=== PATIENT | female | born 2000 | race Caucasian/White ===

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

== ENCOUNTER → 2022-04-18 | Outpatient (CLI) | payer OTHER, MEDICAID, SELFPAY ==
--- NOTE | 2022-04-18 12:41 | US_ITS ---
STUDY: RENAL ULTRASOUND - COMPLETE REASON FOR EXAM: Female, 21 years old. UTI . Prior reflux implant. . TECHNIQUE: Ultrasound evaluation of the kidneys was performed with real-time and static viera-scale imaging. COMPARISON: None. FINDINGS: RIGHT KIDNEY: Normal location of the right kidney, which is normal in size. The right kidney measures 10.5 cm x 4.6 cm x 3.7 cm. There is a normal cortex of the right kidney. The renal cortex measures 1.1 cm. There is no right renal mass or cyst. There are no right renal calculi. There is no right hydronephrosis. DISTAL RIGHT URETER: There is non-visualization of the distal right ureter. There is no demonstrated right ureterovesical junction calculus. There is a visualized right ureteral jet. LEFT KIDNEY: Normal location of the left kidney, which is normal in size. The left kidney measures 10 cm x 4.7 cm x 4.5 cm. There is a normal cortex of the left kidney. The renal cortex measures 1.6 cm. There is no left renal mass or cyst. There are no left renal calculi. There is no left hydronephrosis. DISTAL LEFT URETER: There is non-visualization of the distal left ureter. There is no demonstrated left ureterovesical junction calculus. There is a visualized left ureteral jet. Echogenic structure is seen adjacent to the left ureterovesical junction most likely representing the implant. BLADDER: The distended urinary bladder has a volume of 252 ml. There is a normal wall thickness of the distended urinary bladder. There is no demonstrated mass within the urinary bladder. There are no demonstrated bladder calculi. US/Kidney and Bladder IMPRESSION: Normal ultrasound of the kidneys and urinary bladder. Electronically Signed: Narinder Li MD at 10:03 EDT ,
== END | disposition home or self-care (01) ==
LOC: US 12:40
PROVIDERS: PCP Pediatrics; Referring Provider Urology; Visit Provider Urology
DX: N39.0 Urinary tract infection, site not specified (principal); N13.70 Vesicoureteral-reflux, unspecified
CPT/HCPCS: 76770

== ENCOUNTER → 2022-09-01 | Outpatient (CLI) | payer OTHER, MEDICAID, SELFPAY ==
[2022-09-01 12:14] LABS: Absolute Neutrophil Count 2.8 X10^3/uL (2.0-7.7); Basophil# 0.02 X10^3/uL; Basophil% 0.4 % (0-1); Eosinophil# 0.07 X10^3/uL; Eosinophils% 1.5 % (0-5); Hematocrit 39.1 % (37-47); Hemoglobin 12.9 g/dL (12.0-15.0); Lymphocyte % 31.9 % (19-41); Mean Corpuscular Hgb 29.3 pg (27.0-32.0); Mean Corpuscular Volume 88.9 fL (81-99); Mean Platelet Vol. 10.2 fl (6.2-12.0); Monocyte# 0.32 X10^3/uL; Monocyte% 6.8 % (0-10); NRBC Flagged by Analyzer 0 % (0-5); Neutrophil # 2.78 X10^3/uL (2.7-7.7); Neutrophil % 59.2 % (47-70); Platelet Count 245 K/mm3 (150-450); RBC Distribution Width CV 11.8 % (11.6-14.6); White Blood Count 4.7 K/mm3 (4.4-11.0)
[2022-09-01 13:00] LABS: ALB/GLOB Ratio 1.3 RATIO (0.9-2.4); AST(SGOT) 22 U/L (15-37); Alanine Aminotransfer ALT/SGPT 24 U/L (13-56); Albumin, Serum 4.1 g/dL (3.2-5.0); Alkaline Phosphatase 98 U/L (45-117); Anion Gap 7 (5-15); BUN 9 mg/dL (7-18); BUN/Creat Ratio 14.5 RATIO (10-20); Chloride 109 mmol/L (98-107); Creatinine, Serum 0.62 mg/dL (0.55-1.02); EST Glomerular Filtration Rate 129 mL/min (>60); Est Glom Filt Rate - Afr Amer 156 mL/min (>60); Globulin 3.2 g/dL (2.2-4.2); Glucose 94 mg/dL (74-106); Protein, Total 7.3 g/dL (6.4-8.2); Sodium Level 141 mmol/L (136-145)
== END | disposition home or self-care (01) ==
LOC: BIMLAB 11:13
PROVIDERS: PCP Pediatrics; Visit Provider Internal Medicine
DX: F32.A Depression, unspecified (principal); F41.9 Anxiety disorder, unspecified; Z11.3 Encounter for screening for infections with a predominantly sexual mode of transmission
CPT/HCPCS: 36415; 80053; 85025

== ENCOUNTER → 2022-09-05 | Outpatient (CLI) | payer OTHER, MEDICAID, SELFPAY ==
[2022-09-05 15:45] LABS: Chlamydia Trachomatis by PCR Negative (Negative); Neisserai gonorrhoeae by PCR Negative (Negative)
[2022-09-05 15:46] LABS: Probe Check PASS; Sample Adequacy Control PASS; Specimen Processing Control PASS
== END | disposition home or self-care (01) ==
LOC: LABSPEC 10:22
PROVIDERS: PCP Internal Medicine; Referring Provider Internal Medicine; Visit Provider Internal Medicine
DX: Z11.3 Encounter for screening for infections with a predominantly sexual mode of transmission (principal)
CPT/HCPCS: 87491; 87591

== ENCOUNTER → 2022-10-13 | Outpatient (CLI) | payer OTHER, MEDICAID, SELFPAY ==
[2022-10-13 18:17] LABS: Amphetamine Urine VISTA NEGATIVE (<1000 ng/mL); Barbiturate Urine VISTA NEGATIVE (< 200 ng/mL); Benzodiazepine Urine VISTA NEGATIVE (< 200 ng/mL); Cocaine Urine VISTA NEGATIVE (< 300 ng/mL); Ecstacy Urine VISTA NEGATIVE (< 500 ng/mL); Methadone Urine VISTA NEGATIVE (< 300 ng/mL); PCP Urine VISTA NEGATIVE (< 25 ng/mL); THC Urine VISTA NEGATIVE (< 50 ng/mL); Vista UDS pH Range 5
== END | disposition home or self-care (01) ==
PROVIDERS: PCP Internal Medicine; Visit Provider Obstetrics & Gynecology
DX: Z11.3 Encounter for screening for infections with a predominantly sexual mode of transmission (principal)
CPT/HCPCS: 80307

== ENCOUNTER → 2023-02-02 | Outpatient (CLI) | payer OTHER, MEDICAID, SELFPAY ==
[2023-02-02 10:29] LABS: NATERA MAILED SPECIMEN
[2023-02-08 19:42] LABS: HPV Reflexed? NOT INDICATED
== END | disposition home or self-care (01) ==
PROVIDERS: PCP Family Medicine; Referring Provider Obstetrics & Gynecology; Visit Provider Obstetrics & Gynecology
DX: Z12.4 Encounter for screening for malignant neoplasm of cervix (principal)
CPT/HCPCS: 36415; 88175; G0145

== ENCOUNTER → 2023-06-15 | Outpatient (CLI) | payer OTHER, SELFPAY ==
--- NOTE | 2023-06-16 09:14 | PFT ---
INTRODUCTION: The patient is a 22-year-old female who presents for pulmonary function studies secondary to a diagnosis of asthma. Respiratory therapy reported good patient effort. Bronchodilators were used during testing. INTERPRETATION: Forced expiration spirometry demonstrates no evidence of a large airways obstructive ventilatory defect. There was no significant response to aerosolized bronchodilators. Body plethysmography was performed and revealed lung volumes to be within normal limits. Diffusing capacity by single breath CO was also within normal limits. IMPRESSION: Grossly normal pulmonary function studies.
== END | disposition home or self-care (01) ==
LOC: PSN 09:53
PROVIDERS: PCP Family Medicine; Referring Provider Internal Medicine Critical Care Medicine; Visit Provider Internal Medicine
DX: J45.909 Unspecified asthma, uncomplicated (principal)
CPT/HCPCS: 94060; 94726; 94729

== ENCOUNTER 2023-06-27 06:58 | Outpatient (RCR) | payer OTHER, SELFPAY ==
--- NOTE | 2023-06-27 10:50 | HP.PTEVAL_ITS ---
Patient's Visit Information Visit Information Visit Information: ANA TERAN is a 22 year old F referred to Physical Therapy by Dr. Julio Cesar Nolen DO with a diagnosis of LOW BACK PAIN. Date of Evaluation: 06/27/23 Physical Therapist: Mikael Latham PT, Cert MDT, OCS Visit Plan Frequency: 2x /Week Duration: 4 Weeks Plan: PT INTERVETIONS DLS ,POSTURAL EX'S ,STRENGTHENING AND MODALTIES Subjective Subjective: This 22 y/o female presents physical therapy with low back pain. Patient has back pain many years worse about~ 2 years. Patient contributing factors [employer] working [address] lugo PT and may need MRI. Location pain lumbar region. Described pain as shooting. Aggravating bending ,lifting ,sitting ,in the morning, walking and standing. Alleviating factors rest. Patient had no recent x-rays ,but had x-rays last year which was negative. Coughing/sneezing + . C/O paresthesia/tingling -. Pain causes pain. Patient has trauma. Patient pain causes deficits impairs function. Patient goals to decrease pain. 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[employer] ,delivery presription Pain Bilateral Back: Pain Intensity (Out of 10): 5 Objective Objective: POSTURE: decrease lordosis GAIT: reciprocal pattern NEURO: denies paresthesia/tingling ,reflexes L3-4,L4-5,L5-S1 2/3 SYMTTRIES: align PALAPTION: unremarkable MMT: quads/hams 4/5, 4/5 hip ,ankle 4/5 LUMBAR ROM: flexion mod loss ,extension mod loss ,min side glides ( although SUPINE flexion/REIL WNL) HIP ROM: excessive ROM ABDNOMINAL ENDURANCE: unable Special Tests L/S Slump test left side: Negative L/S Slump test right side: Negative L/S Left Straight Leg Raise: Negative L/S Right Straight Leg Raise: Negative Lumbar Standing: Flexion - Mechanical Response: No effect Lumbar Standing: Flexion - Symptoms During Testing: Increases Lumbar Standing: Flexion - Symptoms After Testing: No worse Lumbar Standing: Extension - Mechanical Response: No effect Lumbar Standing: Extension - Symptoms During Testing: Increases Lumbar Standing: Extension - Symptoms After Testing: No effect Lumbar Standing: Right Side Glides - Mechanical Response: No effect Lumbar Standing: Right Side [facility] - Symptoms During Testing: No effect Lumbar Standing: Right Side [facility] - Symptoms After Testing: No effect Lumbar Standing: Left Side [facility] - Mechanical Response: No effect Lumbar Standing: Left Side [facility] - Symptoms During Testing: No effect Lumbar Standing: Left Side [facility] - Symptoms After Testing: No effect Lumbar Lying: Flexion - Mechanical Response: No effect Lumbar Lying: Flexion - Symptoms During Testing: No effect Lumbar Lying: Flexion - Symptoms After Testing: No effect Lumbar Lying: Extension - Mechanical Response: No effect Lumbar Lying: Extension - Symptoms During Testing: Increases Lumbar Lying: Extension - Symptoms After Testing: No effect Balance/Special Test Scores Oswestry Low Back Score: 26 Goals Goal 1:: Patient to be I with HEP Goal Time Frame: 4-6 Weeks Goal 2:: Patient to improve posture/body mechanics for ADLS and job demands. Goal Time Frame: 4-6 Weeks Goal 3:: Patient to improve lumbar ROM for function of recovery for job demands with lifting Goal Time Frame: 4-6 Weeks Goal 4:: Patient to demonstrate 50% improvement with function and less pain Goal Time Frame: 4-6 Weeks Goal 5:: Patient to improve back oswestry score by 5 points to improve function Goal Time Frame: 4-6 Weeks Rehabilitation Potential Physical Therapy Diagnosis: This patient has lumbar pain with poor abd endurance testing due to pain and position and motion testing increase pain along with comorbities with hypermobile joints thus bene fit from skilled PT Rehabilitation Potential: Good Anticipated Interventions Patient/Client Instruction: Educate patient on: Condition and Plan of Care For the Purpose of:: To decrease pain, To improve muscle performance and motor function, To increase tolerance to activity/condition/position, To improve performance and independence with ADL's, To improve ability of physical actions for home/community/work/leisure, To improve health of tissue, To increase flexibility/ROM and To improve endurance Therapeutic Exercise to Include: Strength training, Endurance training, Balance training, Postural training, Flexibilty training, Active ROM and Dynamic Lumbar Stabilization For the Purpose of:: To increase ROM, To increase oxygenation perfusion, To improve ability to perform ADL's, To increase tolerance to activity/condition/position, To improve ability of physical actions for home/community/work/leisure, To improve gait and locomotor functions, To improve health of tissue, To decrease soft tissue restriction, To increase flexibility/ROM and To improve tolerance to ADL's TENS: Yes IF ES: Yes Cryotherapy (ice pack, ice massage): Yes Thermo therapy (hot pack): Yes Ultrasound (thermal/non thermal): Yes For the Purpose of:: To decrease pain, To improve nutrient delivery to tissue, To increase oxygenation perfusion, To improve health of tissue, To decrease soft tissue restriction and To increase flexibility/ROM Text: Thank you for the opportunity to evaluate your patient. For Medicare and Medicare HMO plans, please review the plan of care and approve it. It will need to be FAXED BACK to us at [phone] for Medicare purposes. For Medicare only, by signing this I certify the plan of care. Please let me know if there are questions or concerns regarding this plan of care. Physician Signature: Date:
--- NOTE | 2023-10-02 11:25 | HP.PT.NRP ---
Patient Information Patient Information: ANA TERAN was seen in my office for initial evaluation on 06/27/23. The following Plan of Care was established for this patient: POC Established Initial Frequency: 2x /Week Initial Duration: 4 Weeks Anticipated Interventions Patient/Client Instruction: Educate patient on: Condition and Plan of Care For the Purpose of:: To decrease pain, To improve muscle performance and motor function, To increase tolerance to activity/condition/position, To improve performance and independence with ADL's, To improve ability of physical actions for home/community/work/leisure, To improve health of tissue, To increase flexibility/ROM and To improve endurance Therapeutic Exercise to Include: Strength training, Endurance training, Balance training, Postural training, Flexibilty training, Active ROM and Dynamic Lumbar Stabilization For the Purpose of:: To increase ROM, To increase oxygenation perfusion, To improve ability to perform ADL's, To increase tolerance to activity/condition/position, To improve ability of physical actions for home/community/work/leisure, To improve gait and locomotor functions, To improve health of tissue, To decrease soft tissue restriction, To increase flexibility/ROM and To improve tolerance to ADL's TENS: Yes IF ES: Yes Cryotherapy (ice pack, ice massage): Yes Thermo therapy (hot pack): Yes Ultrasound (thermal/non thermal): Yes For the Purpose of:: To decrease pain, To improve nutrient delivery to tissue, To increase oxygenation perfusion, To improve health of tissue, To decrease soft tissue restriction and To increase flexibility/ROM Last Seen Last Seen: This patient was last seen in our office . Pertinent comments regarding their Physical therapy will appear below: Patient seen for PT for lumbar pain for PT evaluation and HEP At this point I will be discontinuing this patient from physical therapy. I would be happy to see this patient again in the future if found appropriate by the physician. Thank you! Mikael Latham, PT, Cert MDT, OCS Balance/Gait/Functional tests Balance/Special Test Scores Oswestry Low Back Score: 26
== END 2023-06-27 19:00 | disposition home or self-care (01) ==
LOC: PT 06:58
PROVIDERS: PCP Family Medicine; Referring Provider Orthopaedic Surgery; Visit Provider Orthopaedic Surgery
DX: M54.59 Other low back pain (principal)
CPT/HCPCS: 97110; 97161

== ENCOUNTER → 2023-10-16 | Outpatient (CLI) | payer OTHER, SELFPAY ==
[2023-10-16 11:36] LABS: T4 Free Direct 0.92 ng/dL (0.76-1.46); Thyroid Stim Hormone (TSH) 0.62 uIU/mL (0.358-3.74)
[2023-10-17 04:07] LABS: Thyroid Peroxidase AB < 9 IU/mL (0-34)
== END | disposition home or self-care (01) ==
LOC: LAB 10:18
PROVIDERS: PCP Family Medicine; Referring Provider Obstetrics & Gynecology; Visit Provider Obstetrics & Gynecology
DX: R63.4 Abnormal weight loss (principal)
CPT/HCPCS: 36415; 84439; 84443; 86376

== ENCOUNTER → 2023-12-14 | Outpatient (CLI) | payer OTHER, SELFPAY ==
--- NOTE | 2023-12-14 09:27 | BD_ITS ---
STUDY: DUAL ENERGY X-RAY ABSORPTIOMETRY / DXA REASON FOR EXAM: Female, 23 years old. chronic use of depo provera -- long time use of depo-provera TECHNIQUE: Bone Mineral Density (BMD) measurements of lumbar spine and bilateral hips were obtained. COMPARISON: None. FINDINGS: Lumbar Spine (L1-L4): g/cm2 (0.898) / T-score (-1.4) / Z-score (-1.3) Findings are suggestive of osteopenia with a moderate fracture risk. Left Femur Total: g/cm2 (0.885) / T-score (-0.5) / Z-score (-0.5) Left Femoral Neck: g/cm2 (0.806) / T-score (-0.4) / Z-score (-0.4) Right Femur Total: g/cm2 (0.883) / T-score (-0.5) / Z-score (-0.5) Right Femoral Neck: g/cm2 (0.734) / T-score (-1.0) / Z-score (-1.0) BD/Dexa Bone Density Study IMPRESSION: The patient is considered osteopenic as outlined below according to World Lex Organization (WHO) criteria with a moderate fracture risk. Reference Information: The T-score is the number of standard deviations above or below the standard which is normal for young adults at their peak bone mineral density. The World Health Organization (WHO) interprets the T-scores as follows: Above -1 Normal bone density Between -1 and -2.5 Osteopenia Equal to / or below -2.5 Osteoporosis As a practical clinical guideline, osteopenia may be graded as follows: Mild -1 through -1.5 Moderate -1.6 through -2.0 Severe -2.1 through -2.4 The Z-score is the number of standard deviations above or below age-matched controls. A Z-score of less than -1.5 would be considered abnormal. References: 1. NIH Osteoporosis and Related Bone Diseases www osteo.org 2. International Society for Clinical Densitometry www iscd.org 3. National Osteoporosis Foundation www nof.org Electronically Signed: Damian Garrett MD at 10:16 EDT ,
== END | disposition home or self-care (01) ==
LOC: OPBD 09:25
PROVIDERS: Referring Provider Obstetrics & Gynecology; Visit Provider Obstetrics & Gynecology
DX: Z79.3 Long term (current) use of hormonal contraceptives (principal); Z82.62 Family history of osteoporosis
CPT/HCPCS: 77080

== ENCOUNTER → 2025-04-11 | Outpatient (CLI) | payer OTHER, SELFPAY ==
[2025-04-11 12:36] LABS: PTHIN 27 pg/mL (11-61)
[2025-04-12 04:07] LABS: PROLACTIN 13.9 ng/mL (4.8-33.4)
== END | disposition home or self-care (01) ==
LOC: LAB 11:01
PROVIDERS: PCP Family Medicine; Referring Provider Obstetrics & Gynecology; Visit Provider Obstetrics & Gynecology
DX: M85.80 Other specified disorders of bone density and structure, unspecified site (principal); N64.52 Nipple discharge
CPT/HCPCS: 36415; 82670; 83970; 84146; 84439; 84443

== ENCOUNTER → 2025-04-14 | Outpatient (CLI) | payer OTHER, SELFPAY ==
--- NOTE | 2025-04-14 12:28 | US_ITS ---
PROCEDURE: BREAST LIMITED UNILATERAL 04/14/2025 REASON FOR EXAM: F, Age 24 y/o , NIPPLE DISCHARGE Bilateral nipple discharge for 2 years. COMPARISON: None. TECHNIQUE: Procedure Code: USBRSTLIMIT Modality: US Procedure: BREAST LIMITED UNILATERAL FINDINGS: Ultrasonography of the right breast retroareolar region was performed. There are no abnormally dilated ducts. There are no suspicious solid or cystic masses seen. There is no ultrasound abnormality seen to correlate to the nipple discharge. US/Breast Limited Unilateral IMPRESSION: Ultrasonography of the right breast retroareolar region was performed. There ar e no abnormally dilated ducts. There are no suspicious solid or cystic masses seen. There is no ultrasound abnormality seen to correlate to the nipple discharge. BI-RADS 1: NEGATIVE RECOMMENDATION: If the discharge does continue or worsen, a galactogram should be performed. The type of discharge that she is describing is not typically associated with malignancy. Reading Location: [id number]
--- NOTE | 2025-04-14 12:28 | US_ITS ---
PROCEDURE: BREAST LIMITED UNILATERAL 04/14/2025 REASON FOR EXAM: F, Age 24 y/o , NIPPLE DISCHARGE Bilateral nipple discharge for 2 years. COMPARISON: None. TECHNIQUE: Procedure Code: USBRSTLIMIT Modality: US Procedure: BREAST LIMITED UNILATERAL FINDINGS: Ultrasonography of the left breast retroareolar region was performed. There are no abnormally dilated ducts. There are no suspicious solid or cystic masses seen. There is no ultrasound abnormality seen to correlate to the nipple discharge. US/Breast Limited Unilateral IMPRESSION: Ultrasonography of the left breast retroareolar region was performed. There are no abnormally dilated ducts. There are no suspicious solid or cystic masses seen. There is no ultrasound abnormality seen to correlate to the nipple discharge. BI-RADS 1: NEGATIVE RECOMMENDATION: If the discharge does continue or worsen, a galactogram should be performed. The type of discharge that she is describing is not typically associated with malignancy. Reading Location: [id number]
== END | disposition home or self-care (01) ==
PROVIDERS: PCP Family Medicine; Referring Provider Obstetrics & Gynecology; Visit Provider Obstetrics & Gynecology
DX: N64.52 Nipple discharge (principal)
CPT/HCPCS: 76642